=== PATIENT | female | born 1955 | race Caucasian/White ===

== ENCOUNTER 2024-08-17 17:53 | Emergency (ER) | payer MEDICARE, OTHER ==
[2024-08-17] MEDS ORDERED: Acetaminophen 500 MG TAB ONE (17:58)
== END 2024-08-17 18:50 | disposition home or self-care (01) ==
LOC: BURERS 17:53
DX: S13.4XXA Sprain of ligaments of cervical spine, initial encounter (principal); S00.03XA Contusion of scalp, initial encounter; S90.30XA Contusion of unspecified foot, initial encounter; S09.90XA Unspecified injury of head, initial encounter; I25.2 Old myocardial infarction; E11.9 Type 2 diabetes mellitus without complications; I10 Essential (primary) hypertension; J44.9 Chronic obstructive pulmonary disease, unspecified; W01.0XXA Fall on same level from slipping, tripping and stumbling without subsequent striking against object, initial encounter
CPT/HCPCS: 70450; 72125